=== PATIENT | female | born 1995 | race Caucasian/White ===

== ENCOUNTER 2017-12-09 08:16 | Emergency (ER) | payer OTHER ==
[~2017-12-09] VITALS: Ht 157.5 cm; Wt 118.0 kg
[2017-12-09 12:00] VITALS: BP 139/85
== END 2017-12-09 12:00 | disposition home or self-care (01) ==
LOC: ER 08:34
DX: L72.3 Sebaceous cyst (principal); R22.0 Localized swelling, mass and lump, head
CPT/HCPCS: 99281

== ENCOUNTER 2018-06-19 07:37 | Emergency (ER) | payer OTHER ==
[~2018-06-19] VITALS: Ht 157.5 cm; Wt 141.0 kg
[2018-06-19] MEDS ORDERED: IBUPROFEN 600MG TABLET PO ONE (08:00)
[2018-06-19] MEDS ORDERED: BACITRACIN ZINC OINT UDPKT TOP ONE (09:15)
[2018-06-19] MEDS ORDERED: LIDOCAINE HCL/PF 1% 10 MG/ML 5ML VIAL IJ ONE (09:15)
[2018-06-19 10:20] VITALS: BP 142/62
== END 2018-06-19 10:25 | disposition home or self-care (01) ==
LOC: ER 07:48
DX: J86.9 Pyothorax without fistula (principal)
CPT/HCPCS: 10060; 76604; 81025; 87070; 87205; 99284; J3490; Z7610